=== PATIENT | male | born 1950 | race Caucasian/White ===

== ENCOUNTER 2017-04-16 07:11 | Emergency (ER) | payer MEDICAID ==
[~2017-04-16] VITALS: Wt 65.0 kg
[2017-04-16] MEDS ORDERED: MECLIZINE 12.5 MG TAB PO ONE (07:30)
[2017-04-16] MEDS ORDERED: SOD CHLORIDE 0.9% 1,000 ML IV ONE ×2 (07:30→09:00)
--- NOTE | 2017-04-16 07:33 | ERD ---
ER Documentation Chief Complaint Date/Time DATE: 04/16/17 TIME: 07:30 Chief Complaint states blood sugar 30 at home, ate a piece of chocolate HPI Patient is a 66-year-old male who presents with gradual onset, intermittent, moderate dizziness that he describes as a spinning sensation since yesterday afternoon. He states that is worse with head movements. He reports that he has hearing loss in his right ear that started today. He denies diplopia, difficulty speaking, difficulty walking, focal weakness or numbness. Yesterday he checked his blood sugar and it was between 100 and 200. This morning he checked his blood sugar and it was 38. He had a piece of chocolate and he felt slightly better, but still complains of mild dizziness. He denies headache, chest pain, shortness of breath, nausea, abdominal pain or dysuria. Patient takes Novolin for the last month, and metformin. He does not take sulfonylureas. ROS All systems reviewed and are negative except as per history of present illness. Medications Home Meds Reported Medications Lisinopril* (Lisinopril*) 20 Mg Tablet, 20 MG PO DAILY, #30 TAB 04/16/17 Metformin* (Glucophage*) 1,000 Mg Tablet, 1000 MG PO BID, #60 TAB 04/16/17 Insulin Detemir (Levemir) 100 Unit/1 Ml Vial, 26 UNIT SC DAILY, VIAL 04/16/17 Allergies Allergies: Coded Allergies: No Known Allergy (Unverified , 04/16/17) PMhx/Soc Past medical history: Diabetes mellitus Past surgical history: Denies Social history: Smokes cigarettes, denies alcohol FmHx Noncontributory Physical Exam Vitals Vital Signs Date Time Temp Pulse Resp B/P Pulse Ox O2 Delivery O2 Flow Rate FiO2 04/16/17 07:13 96.6 68 20 103/55 97 Physical Exam Const: Alert, no acute distress Head: Atraumatic Eyes: Normal Conjunctiva, No pallor, no icterus ENT: Normal External Ears, Nose and Mouth. Tacky mucous membranes. Clear right tympanic membrane Neck: Full range of motion..~ No meningismus. Resp: Clear to auscultation bilaterally, No wheezes, no rales Cardio: Regular rate and rhythm, no murmurs Abd: Soft, non tender, non distended. Skin: No petechiae or rashes Back: No midline or flank tenderness Ext: No cyanosis, or edema Neur: Awake and alert, Cranial nerves II through XII intact bilaterally, strength and sensation full in 4 extremities, no pronator drift, no dysmetria Psych: Normal Mood and Affect Result Diagram: 04/16/1746 Results 24 hrs Laboratory Tests Test 04/16/17 07:24 04/16/17 07:46 04/16/17 08:29 04/16/17 09:33 Bedside Glucose 397mg/dL 300mg/dL 274mg/dL Sodium Level 132mmol/L Potassium Level 5.5mmol/L Chloride Level 99mmol/L Carbon Dioxide Level 21mmol/L Anion Gap 18 Blood Urea Nitrogen 31mg/dl Creatinine 1.60mg/dl Glucose Level 369mg/dl Calcium Level 9.0mg/dl Current Medications Medications (Trade) Dose Ordered Sig/Boyd Route PRN Reason Start Time Stop Time Status Last Admin Dose Admin Sodium Chloride (NS) 1,000 ml @ 1,000 mls/hr Q1H ONCE IV 04/16/17 07:30 04/16/17 08:29 DC 04/16/17 07:43 Meclizine HCl 25 mg 25 mg ONCE ONCE PO 04/16/17 07:30 04/16/17 07:31 DC 04/16/17 07:43 Sodium Chloride (NS) 1,000 ml @ 1,000 mls/hr Q1H ONCE IV 04/16/17 09:00 04/16/17 09:59 DC 04/16/17 09:34 Procedures/MDM MDM: Patient is a 66-year-old male with diabetes who presents to the ER with less than 24 hours of dizziness that he describes intermittently as lightheadedness and vertigo. He notes that his blood sugar was normal yesterday in the setting of the symptoms, but today he had low blood sugar. On lab workup, the patient is found to have mild hyperkalemia and creatinine of 1.6. The patient is on both lisinopril and metformin, medications that should not be taken in the setting of elevated creatinine. The patient also has clinical signs of mild dehydration. He is also on insulin, and may have had toxicity from insulin in the setting of an acute bump in his creatinine. I spoke with the patient's primary physician, Dr. Schroeder, who confirmed that the patient has had normal renal function in the past. We agreed to plan to hydrate the patient in the ER, give him instructions to cease lisinopril and metformin, and to follow-up with the PMD tomorrow to recheck creatinine and consider other options for treatment of diabetes. The patient has no evidence of DKA. He has no focal signs of infection. On reassessment his dizziness had resolved. He does report new hearing loss in the right ear, and was advised to follow-up with an ENT doctor. There are no other neurological deficits. Departure Diagnosis: Primary Impression: Hypoglycemia Additional Impressions: Acute renal insufficiency Drug-induced hyperkalemia Dizziness Condition: MAXINE Feng MD Apr 16, 2017 07:33
[2017-04-16 08:12] LABS: CREATININE 1.6 mg/dl (0.61-1.24); POTASSIUM 5.5 mmol/L (3.5-5.1)
[2017-04-16] MEDS ORDERED: LEVEM SC (08:49)
[2017-04-16] MEDS ORDERED: MTF1000T PO (08:50)
[2017-04-16] MEDS ORDERED: LISI20TA11 PO (08:52)
== END 2017-04-16 09:38 | disposition home or self-care (01) ==
LOC: E/R 07:11
DX: E11.649 Type 2 diabetes mellitus with hypoglycemia without coma (principal); N28.9 Disorder of kidney and ureter, unspecified; E87.5 Hyperkalemia; Z79.4 Long term (current) use of insulin; Z79.84 Long term (current) use of oral hypoglycemic drugs
CPT/HCPCS: 36415; 80048; 82962; J7030; Z7502; Z7610